=== PATIENT | female | born 1980 | race American Indian/Alaskan Native ===

== ENCOUNTER 2019-01-26 16:13 | Emergency (ER) | payer SELFPAY ==
[2019-01-26 17:02] VITALS: BP 113/68
--- NOTE | 2019-01-26 17:03 | Event Note ---
ED Screening Note Date of service: 01/26/19 Time: 17:01 ED Screening Note: Complains of productive cough and shortness of breath x 1 week. +R leg pain. Denies recent long travel. +Nexplanon. Hx of asthma, states this is different This initial assessment/diagnostic orders/clinical plan/treatment(s) is/are subject to change based on patients health status, clinical progression and re- assessment by fellow clinical providers in the ED. Further treatment and workup at subsequent clinical providers discretion. Patient/guardian urged not to elope from the ED as their condition may be serious if not clinically assessed and managed. Initial orders include: CXR Labs US
[2019-01-26] MEDS ORDERED: TESSALON PERLES PO ONE ×2 (17:04→18:02)
--- NOTE | 2019-01-26 17:47 | XRay Report ---
CHEST PA AND LATERAL VIEWS INDICATION: cough, shortness of breath. COMPARISON: None. FINDINGS: Support devices: None. Heart: Within normal limits. Lungs/Pleura: No consolidation, effusion, or pneumothorax is seen. There is mild peribronchial cuffin g. IMPRESSION: 1. Probable mild lower airways disease. No consolidation. Signer Name: Indra Kathleen MD Signed: 01/26/2019 5:42 PM Workstation Name: [id number]
--- NOTE | 2019-01-26 17:53 | Vascular Lab Report ---
DUPLEX DOPPLER LOWER EXTREMITY VEINS, RIGHT INDICATION: pain. TECHNIQUE: Duplex doppler imaging was performed through the veins of the right lower extremity using venous comp ression and other maneuvers. COMPARISON: None available. FINDINGS: Common Femoral vein: Negative. Superficial Femoral vein: Negative. Popliteal vein: Negative. Calf veins: Negative. Additional findings: None. IMPRESSION: 1. No sonographic evidence for DVT in the right lower extremity. Signer Name: Indra Kathleen MD Signed: 01/26/2019 5:49 PM Workstation Name: [id number]
[2019-01-26 18:34] LABS: HCG Qualitative,Urine Negative (Negative)
[2019-01-26 19:32] LABS: Basophils # (Auto) 0.1 K/mm3 (0.0-0.1); Basophils % (Auto) 0.7 % (0.0-1.8); Eosinophils # (Auto) 0.3 K/mm3 (0.0-0.4); Eosinophils % (Auto) 3.8 % (0.0-4.3); Hematocrit 40.3 % (30.3-42.9); Lymphocytes # (Auto) 2.6 K/mm3 (1.2-5.4); Lymphocytes % (Auto) 34.7 % (13.4-35.0); Mean Corpuscular HGB Conc 32 % (30-34); Mean Corpuscular Volume 80 fl (79-97); Monocytes # (Auto) 0.6 K/mm3 (0.0-0.8); Monocytes % (Auto) 7.5 % (0.0-7.3); Platelet Count 275 K/mm3 (140-440); Red Blood Count 5.07 M/mm3 (3.65-5.03); Red Cell Distribution Width 15.3 % (13.2-15.2)
[2019-01-26 19:38] LABS: BUN/Creatinine Ratio 15; Blood Urea Nitrogen 9 mg/dL (7-17); Calcium 9.1 mg/dL (8.4-10.2); Hemolysis Index 9
--- NOTE | 2019-01-26 19:49 | Emergency Department Report ---
- General Chief Complaint: Adult Asthma Stated Complaint: FLU LIKE SYMPTOMS Time Seen by Provider: 01/26/19 18:55 Source: patient Mode of arrival: Ambulatory Limitations: No Limitations - History of Present Illness MD Complaint: cough, nasal congestion -: week(s) (1) Severity: mild, moderate Quality: other Consistency: constant Improves With: nothing Worsens With: nothing Associated Symptoms: myalgias, rhinorrhea, nasal congestion, cough. denies: chest pain, abdominal pain, confusion, right sweats, weight loss, epistaxis, hoarseness Treatments Prior to Arrival: none - Related Data Previous Rx's Medication Instructions Recorded Last Taken Type ALBUTEROL Inhaler (OR & NICU) 2 puff IH QID PRN #1 inhalation 01/26/19 Unknown Rx [ProAir HFA Inhaler] Azithromycin [Zithromax] 500 mg PO QDAY #3 tablet 01/26/19 Unknown Rx guaiFENesin/CODEINE [Robitussin AC] 5 ml PO Q6H PRN #120 ml 01/26/19 Unknown Rx predniSONE [Deltasone] 50 mg PO QDAY #5 tab 01/26/19 Unknown Rx Allergies Allergy/AdvReac Type Severity Reaction Status Date / Time ampicillin Allergy Hives Verified 01/26/19 17:02 ED Review of Systems ROS: Stated complaint: FLU LIKE SYMPTOMS Other details as noted in HPI Comment: All other systems reviewed and negative ED Past Medical Hx - Past Medical History Previous Medical History?: Yes Hx Asthma: Yes - Surgical History Past Surgical History?: No Additional Surgical History: none - Social History Smoking Status: Never Smoker Substance Use Type: None - Medications Home Medications: Home Medications Medication Instructions Recorded Confirmed Last Taken Type ALBUTEROL Inhaler (OR & NICU) 2 puff IH QID PRN #1 inhalation 01/26/19 Unknown Rx [ProAir HFA Inhaler] Azithromycin [Zithromax] 500 mg PO QDAY #3 tablet 01/26/19 Unknown Rx guaiFENesin/CODEINE [Robitussin AC] 5 ml PO Q6H PRN #120 ml 01/26/19 Unknown Rx predniSONE [Deltasone] 50 mg PO QDAY #5 tab 01/26/19 Unknown Rx ED Physical Exam - General Limitations: No Limitations General appearance: alert, in no apparent distress - Head Head exam: Present: atraumatic, normocephalic - Eye Eye exam: Present: normal appearance, PERRL, EOMI Pupils: Present: normal accommodation - ENT ENT exam: Present: normal exam, normal orophraynx, mucous membranes moist - Neck Neck exam: Present: normal inspection - Respiratory Respiratory exam: Present: normal lung sounds bilaterally, rhonchi. Absent: respiratory distress, chest wall tenderness, accessory muscle use, decreased breath sounds - Cardiovascular Cardiovascular Exam: Present: regular rate, normal rhythm. Absent: bradycardia, tachycardia, systolic murmur, diastolic murmur, rubs, gallop - GI/Abdominal GI/Abdominal exam: Present: soft, normal bowel sounds. Absent: distended, tenderness, rebound, organomegaly - Extremities Exam Extremities exam: Present: normal inspection, full ROM, normal capillary refill - Back Exam Back exam: Present: normal inspection. Absent: CVA tenderness (R), CVA tenderness (L), muscle spasm - Neurological Exam Neurological exam: Present: alert, oriented X3, CN II-XII intact, normal gait - Psychiatric Psychiatric exam: Present: normal affect, normal mood. Absent: depressed, agitated, anxious, flat affect, manic - Skin Skin exam: Present: warm, dry, intact, normal color. Absent: rash ED Course Vital Signs 01/26/19 17:00 Temperature 98.5 F Pulse Rate 108 H Respiratory 16 Rate Blood Pressure 113/68 O2 Sat by Pulse 100 Oximetry ED Medical Decision Making - Lab Data Result diagrams: 01/26/19 18:44 01/26/19 18:44 - Radiology Data Radiology results: report reviewed (chest x-ray shows peribronchial cuffing) - Medical Decision Making 38-year-old [place] female with known history of asthma since her most department complaining of a one-week history of cough congestion coryza best been aggressively O was present and also not responding to her home albuterol. She reports no nausea vomiting no diarrhea no abdominal pain no chest pain or palpitations he has she has been having cough not nonproductive with some with some coryza myalgias and body aches and and fever sensations has not been very responsive to what she taken [id number]. Chest x-ray today showed. Bronchial cuffing but no signs of any infectious processes and pneumonia. Her examination was relatively benign due to the length of her babbling this issue in her Past medical history would give her a short course of time as well. His may has been initiated as a viral illness however she is outside of the treatment is unknown. Critical care attestation.: If time is entered above; I have spent that time in minutes in the direct care of this critically ill patient, excluding procedure time. ED Disposition Clinical Impression: Cough, Asthma, URI (upper respiratory infection) Disposition: DC-01 TO HOME OR SELFCARE Is pt being admited?: No Does the pt Need Aspirin: No Condition: Stable Instructions: Asthma (ED), Reactive Airways Disease (ED), Dextromethorphan (By mouth), Cold Symptoms (ED), Chronic Cough (ED), Acute Cough (ED) Prescriptions: predniSONE [Deltasone] 50 mg PO QDAY #5 tab ALBUTEROL Inhaler (OR & NICU) [ProAir HFA Inhaler] 2 puff IH QID PRN #1 inhala tion PRN Reason: Shortness Of Breath guaiFENesin/CODEINE [Robitussin AC] 5 ml PO Q6H PRN #120 ml PRN Reason: Cough Azithromycin [Zithromax] 500 mg PO QDAY #3 tablet Referrals: [facility] [Provider Group] - 3-5 Days
== END 2019-01-26 19:58 | disposition home or self-care (01) ==
LOC: ED 16:13
DX: J45.909 Unspecified asthma, uncomplicated (principal); J44.9 Chronic obstructive pulmonary disease, unspecified
CPT/HCPCS: 36415; 71046; 80048; 81025; 85025